=== PATIENT | male | born 1985 | race African-American/Black ===

== ENCOUNTER 2020-11-13 20:43 | Emergency (ER) | payer SELFPAY ==
[~2020-11-13] VITALS: Ht 177.8 cm; Wt 120.5 kg
[2020-11-13 20:48] VITALS: BP 163/97
[2020-11-13] MEDS ORDERED: RX-CLINDAMYCIN 150 MG (CLEOCIN) CAP PPK#4 PO STA (21:06)
[2020-11-13] MEDS ORDERED: CLIN300C12 PO (21:13)
[2020-11-13] MEDS ORDERED: ACHD5005 PO (21:13)
--- NOTE | 2020-11-13 21:14 | ED EENT ---
History of Present Illness General Chief Complaint: Oral/Throat Problems Stated Complaint: SWELLING IN ROOF OF MOUTH Source: patient Exam Limitations: no limitations History of Present Illness Date Seen by Provider: Nov 13, 2020 Time Seen by Provider: 21:08 Initial Comments To ER with swelling to the right side of the roof of his mouth since , 11/09/2020. No fevers. Timing/Duration: abrupt Severity: moderate Location: mouth Prearrival Treatment: no prearrival treatment Associated Symptoms: denies symptoms Allergies and Home Medications Allergies Coded Allergies: Penicillins (Verified Allergy, Unknown, 11/13/20) Home Medications Clindamycin HCl 300 Mg Capsule, 300 MG PO QID Prescribed by: LAUREN CHASE on 11/13/202112 Hydrocodone/Acetaminophen 1 Each Tablet, 1 TAB PO Q4H PRN for PAIN-MODERATE (5- 7) Prescribed by: LAUREN CHASE on 11/13/202113 Patient Home Medication List Home Medication List Reviewed: Yes Review of Systems Review of Systems Constitutional: see HPI Eyes: No Symptoms Reported Ears: No Symptoms Reported Nose: no symptoms reported Mouth: see HPI, pain, swelling Throat: no symptoms reported Respiratory: no symptoms reported Cardiovascular: no symptoms reported Musculoskeletal: no symptoms reported Skin: no symptoms reported Neurological: No Symptoms Reported Hematologic/Lymphatic: No Symptoms Reported Immunological/Allergic: no symptoms reported Physical Exam Vital Signs Vital Signs - First Documented 11/13/20 20:48 Temp 36.9 Pulse 58 Resp 18 B/P (MAP) 163/97 (119) Pulse Ox 98 O2 Delivery Room Air Height, Weight, BMI Height: '" Weight: lbs. oz. kg; BMI Method: General Appearance: WD/WN, no apparent distress Eyes: bilateral eye normal inspection, bilateral eye PERRL, bilateral eye EOMI Ears: bilateral ear auricle normal, bilateral ear canal normal, bilateral ear TM normal Mouth/Throat: other (Swelling and fluctuance just posterior to tooth #6 and 7.) Neck: non-tender, full range of motion Respiratory: no respiratory distress, no accessory muscle use Gastrointestinal: normal bowel sounds, non tender Neurologic/Psychiatric: alert, normal mood/affect, oriented x 3 Skin: normal color, warm/dry Progress/Results/Core Measures Results/Orders My Orders Orders - LAUREN CHASE CLIENT EXECUTIVE Rx-Clindamycin Capsule (Rx-Cleocin Capsu (11/13/20 21:06) Rx-Hydrocodone/Apap 5-325 Mg (Rx-Vicodin (11/13/20 21:15) Lidocaine/Epi 2% 1:100,000 (Xylocaine/Ep (11/13/20 21:15) Wound Culture (11/13/20 21:06) Vital Signs/I&O 11/13/20 20:48 Temp 36.9 Pulse 58 Resp 18 B/P (MAP) 163/97 (119) Pulse Ox 98 O2 Delivery Room Air Departure Communication (Admissions) 1247 procedure note: Victor Hugo's local anesthesia with 0.25 mL of 1% lidocaine with epinephrine using a 27-gauge needle. An incision was made with an 11 blade scalpel over the most fluctuance and there was a large amount of free material expressed. Then had him rinse his mouth out with ice water couple of times and spit that out. We then packed some gauze over the incision and discharged home. He is already on clindamycin 600 mg 3 times daily as prescribed by [facility] yesterday. Impression Primary Impression: Hard palate abscess Disposition: HOME, SELF-CARE Condition: Stable Departure-Patient Inst. Decision time for Depature: 21:10 Referrals: [facility] (PCP/Family) Primary Care Physician Patient Instructions: ABSCESS Add. Discharge Instructions: Use either tap water or a mouthwash to swish and spit several times a day for the next few days take the antibiotics and the pain medication as directed return to ER for any concerns follow-up with your dentist this week or next. All discharge instructions reviewed with patient and/or family. Voiced understanding. Scripts Hydrocodone/Acetaminophen (Hydrocodone-Acetamin 5-325 mg) 1 Each Tablet 1 TAB PO Q4H PRN for PAIN-MODERATE (5-7), #10 TAB Prov: LAUREN CHASE CLIENT EXECUTIVE 11/13/20 Clindamycin HCl (Clindamycin HCl) 300 Mg Capsule 300 MG PO QID, #28 CAP Prov: LAUREN CHASE CLIENT EXECUTIVE 11/13/20 Images Mouth/Nose 1 - Swelling LAUREN CHASE CLIENT EXECUTIVE Nov 13, 2020 21:14
[2020-11-13] MEDS ORDERED: LIDOCAINE/EPI 2% 1:100,00 (XYLOCAINE) 20 ML VIAL INJ ONE (21:15)
== END 2020-11-13 21:36 | disposition home or self-care (01) ==
LOC: ER 20:46
DX: M27.2 Inflammatory conditions of jaws (principal)
CPT/HCPCS: 87070; 87205; 99283